=== PATIENT | male | born 1960 | race Two or more races ===

== ENCOUNTER 2024-02-04 10:02 | Emergency (ER) | payer MEDICARE, OTHER ==
[~2024-02-04] VITALS: Ht 165.1 cm; Wt 83.9 kg
[~2024-02-04 10:02] MED LIST: ALBU8.5H8 IH; DOXA2TAB2 PO; HYDR-3658 PO; IMAT400T6 PO; LINA145C PO; OMEP40CA21 PO; OXYB5TAB16 PO; RANI300C PO; TEMA15CA PO; ZOLP10TA6 PO
[2024-02-04 10:17] VITALS: BP 142/86; TEMP 98.8; O2SAT 98
[2024-02-04] MEDS ORDERED: AMOX-427 PO (10:23)
== END 2024-02-04 10:33 | disposition home or self-care (01) ==
LOC: ER 10:06
DX: S09.93XA Unspecified injury of face, initial encounter (principal); I10 Essential (primary) hypertension; X58.XXXA Exposure to other specified factors, initial encounter; Y93.89 Activity, other specified; Y92.89 Other specified places as the place of occurrence of the external cause; Y99.8 Other external cause status